=== PATIENT | male | born 1935 | race Caucasian/White ===

== ENCOUNTER 2021-07-12 05:29 | Day surgery (SDC) | payer MEDICARE, BC ==
[2021-07-06 15:04] LABS: BASOPHILS % (AUTO) 0.6 % (0-1); EOSINOPHILS # (AUTO) 0.1 X10'3 (0-0.9); EOSINOPHILS % (AUTO) 1.9 % (0-6); LYMPHOCYTES # (AUTO) 1.9 X10'3 (1.1-4.8); LYMPHOCYTES % (AUTO) 24.8 % (21-51); MEAN CORPUSCULAR HEMOGLOBIN 32.8 PG (27.0-31.0); MEAN CORPUSCULAR HGB CONC 34.5 g/dL (33.0-36.5); MEAN CORPUSCULAR VOLUME 94.9 FL (78-98); MEAN PLATELET VOLUME 8.6 FL (7.4-10.4); MONOCYTES # (AUTO) 0.7 X10'3 (0-0.9); MONOCYTES % (AUTO) 9.4 % (2-12); NEUTROPHILS # (AUTO) 4.8 X10'3 (1.8-7.7); NEUTROPHILS % (AUTO) 63.3 % (42-75); PRE OP HEMATOCRIT 43.5 % (42.0-52.0); PRE OP PLATELET COUNT 210 X10'3 (140-440); RED BLOOD COUNT 4.58 X10'6 (4.70-6.10); RED CELL DISTRIBUTION WIDTH 13.5 % (11.5-14.5)
[2021-07-06 15:18] LABS: ALBUMIN 3.5 G/DL (3.4-5.0); ALKALINE PHOSPHATASE 64 IU/L (46-116); BLOOD UREA NITROGEN 17 MG/DL (7-18); BUN/CREATININE RATIO 17.9 (5.4-32.0); CALCIUM 8.3 MG/DL (8.5-10.1); CHLORIDE 109 MMOL/L (99-107); CREATININE 0.95 MG/DL (0.60-1.10); PRE OP ALT 35 U/L (30-65); PRE OP ANION GAP 12 (8-16); PRE OP AST 20 U/L (10-37); PRE OP BILIRUB, TOTAL 0.4 MG/DL (0.0-1.0); PRE OP GLUCOSE 105 MG/DL (70-104); PRE OP SODIUM 144 MMOL/L (135-145); TOTAL CARBON DIOXIDE 23.2 MMOL/L (24-32); TOTAL PROTEIN 6.9 G/DL (6.4-8.2); eGFR 76 ML/MIN
[~2021-07-12] VITALS: Ht 172.7 cm; Wt 93.0 kg
[2021-07-12] VITALS (14 sets, daily range): BP systolic 124–143; BP diastolic 70–88
[~2021-07-12 05:29] MED LIST: ALBU8HFA PO; ATRNS; FLUT16SP13 BOTHNARES; LOSA1TAB41 PO; MONT-40 PO; SILD20TA PO; TRAZ-251 PO; ringers solution, lacted 1,000 ML IV SCH
[2021-07-12] MEDS ORDERED: ceFAZolin 2gm in dextrose, iso 50 ML IV ONE (05:30)
[2021-07-12] MEDS ORDERED: albuterol 2.5 MG/3 ML nebule NEB ONE (05:30)
[2021-07-12] MEDS ORDERED: famotidine 20mg tablet PO ONE (05:30)
[2021-07-12] MEDS ORDERED: BUPIVAcaine/PF 2.5 mg/ml (0.25%) 30ml vial ONE (06:51)
[2021-07-12] MEDS ORDERED: LIDOcaine 1% 30ml preserv. free vial ONE (06:51)
[2021-07-12] MEDS ORDERED: BUPIVACAINE liposomal/PF 13.3 MG/ML vial IM ONE (06:52)
[2021-07-12] MEDS ORDERED: BUPIVAcaine/PF 2.5mg/ml (0.25%) 10ml vial ONE (06:52)
[2021-07-12] MEDS ORDERED: ringers solution, lacted 1,000 ML IV SCH (07:20)
[2021-07-12] MEDS ORDERED: fentaNYL/PF 50MCG/1 ML 2ML syringe IV PRN ×2 (07:20)
[2021-07-12] MEDS ORDERED: ondansetron/PF 4mg/2ml inj IV PRN (07:20)
[2021-07-12] MEDS ORDERED: labetalol 20mg/4ml (5mg/ml) syringe IV PRN (07:20)
[2021-07-12] MEDS ORDERED: morphine 4 MG/ML inj SYRINge IV PRN (07:20)
[2021-07-12] MEDS ORDERED: hydrALAZINE 20mg/ml inj. IV PRN (07:20)
[2021-07-12] MEDS ORDERED: morphine 2 MG/ML inj. syringe IV PRN (07:20)
[2021-07-12] MEDS ORDERED: fentaNYL/PF 50MCG/1 ML 2ML syringe ONE (07:24)
[2021-07-12] MEDS ORDERED: midazolam 1 mg/ML 2ml injection ONE (07:24)
[2021-07-12] MEDS ORDERED: propofol inj 20 ML IV ONE (07:25)
[2021-07-12] MEDS ORDERED: rocuronium 10mg/ml inj IV ONE (07:25)
[2021-07-12] MEDS ORDERED: glycopyrrolate 0.2mg/ml inj ONE (07:26)
[2021-07-12] MEDS ORDERED: neostigmine methylsulfate 1 MG/ML 10ml vial ONE (07:26)
[2021-07-12] MEDS ORDERED: LIDOcaine 2% (20mg/ml) 5ml vial ONE (07:26)
[2021-07-12] MEDS ORDERED: dexamethasone sod phosphate 4mg/ml inj. ONE (07:26)
[2021-07-12] MEDS ORDERED: ondansetron/PF 4mg/2ml inj ONE (07:26)
--- NOTE | 2021-07-12 09:04 | NUR ---
Received from OR via , accompanied by Anesthesiologist DR LUTHER and report given by Anesthesiolgist. PT PRESENTS WITH 20G RIGHT WRIST, ABD DRESSING DRY AND INTACT, VSS Addendum: 07/12/21 at 0923 by Cinthia Joseph RN, RN Amended: Links added.
[2021-07-12] MEDS ORDERED: oxyCODONE/APAP 5-325mg tablet PO PRN ×2 (09:20)
--- NOTE | 2021-07-12 10:27 | NUR ---
PT URINATED 150 INTO URINAL. Addendum: 07/12/21 at 1028 by Cinthia Joseph RN RN Amended: Links added.
--- NOTE | 2021-07-12 10:54 | NUR ---
PT VSS, DC INSTRUCTIONS REVIEWED WITH PT AND PT'S SO/GAEL PT HAS NO FURTHER QUESTIONS AT THIS TIME, IV DC. PT TAKEN OUT IN WHEELCHAIR TO PT'S SO GAEL [facility]ANG TRANSPORTED PT HOME. PT TO CALL FOR FOLLOW UP APT WITH DR KEY. Addendum: 07/12/21 at 1119 by Cinthia Joseph RN, RN Amended: Links added.
== END 2021-07-12 10:54 | disposition home or self-care (01) ==
LOC: PAS 05:29
PROVIDERS: ATTEND Surgery
DX: K42.9 Umbilical hernia without obstruction or gangrene (principal); I10 Essential (primary) hypertension; M19.90 Unspecified osteoarthritis, unspecified site; J44.9 Chronic obstructive pulmonary disease, unspecified; E66.9 Obesity, unspecified; Z68.31 Body mass index [BMI] 31.0-31.9, adult; Z79.899 Other long term (current) drug therapy; Z20.822 Contact with and (suspected) exposure to COVID-19; Z98.890 Other specified postprocedural states; Z87.891 Personal history of nicotine dependence; Z72.89 Other problems related to lifestyle
CPT/HCPCS: 36415; 49652; 64488; 80053; 82948; 85025; 93005; 94640; 94760; C1781; C9290; J1100; J2001; J2250; J2405; J2704; J2710; J3010; J3490; U0003; U0005; Z7506; Z7508; Z7512; A4215; A4618; J7120

== ENCOUNTER 2022-08-02 15:55 | Outpatient (CLI) | payer MEDICARE, BC ==
[~2022-08-02 15:55] MED LIST changes: -ringers solution, lacted 1,000 ML IV SCH
[2022-08-02 16:10] LABS: ABG BASE EXCESS 0.3 mmol/L (-2.0-2.0); ABG PCO2 (T) 32.3 mmHg (35.0-48.0); ABG PO2 (T) 83.1 mmHg (75.0-100.0); ALLEN'S TEST POSITIVE; FCOHb 0.9 % (0.0-3.9); FMetHb 0.3 % (0.0-1.5); FO2Hb 95.8 % (94-97); TOTAL HEMOGLOBIN 15.4 G/dl (14.0-17.9)
== END 2022-08-02 23:59 | disposition home or self-care (01) ==
LOC: RT 15:55
PROVIDERS: ATTEND Internal Medicine Cardiovascular Disease
DX: R94.2 Abnormal results of pulmonary function studies (principal); J44.9 Chronic obstructive pulmonary disease, unspecified; R06.02 Shortness of breath; Z87.891 Personal history of nicotine dependence; Z79.899 Other long term (current) drug therapy
CPT/HCPCS: 36600; 82803; 85018; 94010; 94727; 94729

== ENCOUNTER 2022-08-16 07:59 | Day surgery (SDC) | payer MEDICARE, BC ==
[2022-08-14 15:06] LABS: BASOPHILS # (AUTO) 0.1 X10'3 (0-0.2); BASOPHILS % (AUTO) 0.8 % (0-1); EOSINOPHILS # (AUTO) 0.2 X10'3 (0-0.9); EOSINOPHILS % (AUTO) 2.3 % (0-6); HEMATOCRIT 43.3 % (42.0-52.0); HEMOGLOBIN 14.6 g/dl (14.0-17.9); LYMPHOCYTES # (AUTO) 1.6 X10'3 (1.1-4.8); LYMPHOCYTES % (AUTO) 17.5 % (21-51); MEAN CORPUSCULAR HEMOGLOBIN 30.8 PG (27.0-31.0); MEAN CORPUSCULAR HGB CONC 33.6 g/dL (33.0-36.5); MEAN CORPUSCULAR VOLUME 91.6 FL (78-98); MEAN PLATELET VOLUME 8.4 FL (7.4-10.4); MONOCYTES # (AUTO) 1.2 X10'3 (0-0.9); MONOCYTES % (AUTO) 12.5 % (2-12); NEUTROPHILS # (AUTO) 6.3 X10'3 (1.8-7.7); NEUTROPHILS % (AUTO) 66.9 % (42-75); PLATELET COUNT 299 X10'3 (140-440); RED BLOOD COUNT 4.73 X10'6 (4.70-6.10); RED CELL DISTRIBUTION WIDTH 13.6 % (11.5-14.5); WHITE BLOOD COUNT 9.4 X10'3 (4.5-11.0)
[2022-08-14 15:11] LABS: APTT 29 SECONDS (22-32)
[2022-08-14 15:13] LABS: ALANINE AMINOTRANSFERASE 33 U/L (12-78); ALBUMIN 3.3 G/DL (3.4-5.0); ALBUMIN/GLOBULIN RATIO 0.8 (1.1-1.5); ALKALINE PHOSPHATASE 108 IU/L (46-116); ANION GAP 9 (8-16); ASPARTATE AMINO TRANSFERASE 23 U/L (10-37); BILIRUBIN,TOTAL 0.3 MG/DL (0.1-1.0); BLOOD UREA NITROGEN 14 MG/DL (7-18); BUN/CREATININE RATIO 14.6 (5.4-32.0); CALCIUM 8.8 MG/DL (8.5-10.1); CHLORIDE 103 MMOL/L (99-107); CREATININE 0.96 MG/DL (0.60-1.10); GLUCOSE 101 MG/DL (70-104); POTASSIUM 4.2 MMOL/L (3.5-5.1); SODIUM 137 MMOL/L (135-145); TOTAL CARBON DIOXIDE 25.3 MMOL/L (24-32); TOTAL PROTEIN 7.5 G/DL (6.4-8.2); eGFR 74 ML/MIN
[~2022-08-16] VITALS: Ht 172.7 cm; Wt 92.3 kg
[2022-08-16] VITALS (13 sets, daily range): BP systolic 102–138; BP diastolic 57–95
[2022-08-16] MEDS ORDERED: normal saline 1,000 ML IV SCH (08:15)
[2022-08-16] MEDS ORDERED: nitroGLYCERIN 0.4mg SUBLingual tab SL PRN (08:15)
[2022-08-16] MEDS ORDERED: diphenhydrAMINE 25mg capsule PO PRN (08:15)
[2022-08-16] MEDS ORDERED: LORazepam 0.5 MG tablet PO PRN (08:15)
[2022-08-16] MEDS ORDERED: CETI10TA19 PO (09:20)
[2022-08-16] MEDS ORDERED: ATRNS NS (09:20)
[2022-08-16] MEDS ORDERED: ALBU18HF2 INH (09:20)
[2022-08-16] MEDS ORDERED: midazolam 1 mg/ML 2ml injection ONE (10:33)
[2022-08-16] MEDS ORDERED: fentaNYL/PF 50MCG/1 ML 2ML syringe ONE (10:33)
[2022-08-16] MEDS ORDERED: LIDOcaine 1% 30ml preserv. free vial ONE (10:34)
[2022-08-16] MEDS ORDERED: iohexol 350MG/ML 100ml bottle IV ONE (10:34)
[2022-08-16] MEDS ORDERED: proCHLORperazine 10 MG/2 ml inj ONE (10:44)
--- NOTE | 2022-08-16 11:34 | NUR ---
Bedside report received from MONICA Beatty s/p left/right heart cath with no PCI. Patient a/o x 4 with stable vital signs. NSR on heavy equipment plumbing supervisor. Right groin site stable with no signs of bleeding/hematoma. Will continue to monitor.
[2022-08-16] MEDS ORDERED: ondansetron/PF 4mg/2ml inj IV PRN (11:50)
[2022-08-16] MEDS ORDERED: OXAZEpam 15mg capsule PO PRN (11:50)
[2022-08-16] MEDS ORDERED: normal saline 1000ml 1,000 ML IV SCH (11:50)
[2022-08-16] MEDS ORDERED: HYDROcodone/acetaminophen 10/325mg tab PO PRN (11:55)
[2022-08-16] MEDS ORDERED: proCHLORperazine 10 MG/2 ml inj IV PRN (11:55)
[2022-08-16] MEDS ORDERED: HYDROcodone/acetaminophen 5mg/325mg tablet PO PRN (11:55)
== END 2022-08-16 17:50 | disposition home or self-care (01) ==
LOC: SSTAY O 07:59
PROVIDERS: ATTEND Internal Medicine Cardiovascular Disease
DX: I25.10 Atherosclerotic heart disease of native coronary artery without angina pectoris (principal); G47.33 Obstructive sleep apnea (adult) (pediatric); E78.5 Hyperlipidemia, unspecified; I10 Essential (primary) hypertension; I44.0 Atrioventricular block, first degree; I45.10 Unspecified right bundle-branch block; Z87.891 Personal history of nicotine dependence; Z79.899 Other long term (current) drug therapy; Z79.01 Long term (current) use of anticoagulants
CPT/HCPCS: 36415; 80053; 85025; 85610; 85730; 93005; 93458; 93567; 99152; 99153; C1760; C1769; J0780; J2250; J3010; J3490; J7030; Q0163; Q9967

== ENCOUNTER 2022-09-19 06:08 | Day surgery (SDC) | payer MEDICARE, BC ==
[2022-09-19] VITALS (17 sets, daily range): BP systolic 103–148; BP diastolic 47–87
[~2022-09-19] VITALS: Ht 172.7 cm; Wt 90.0 kg
[~2022-09-19 06:08] MED LIST changes: +ALBU18HF2 INH; -ATRNS; +ATRNS NS; +CETI10TA19 PO; -SILD20TA PO
[2022-09-19] MEDS ORDERED: normal saline 1000ml 1,000 ML IV PRN (06:25)
[2022-09-19] MEDS ORDERED: albumin 25% 100mL bottle x 1 IV PRN (06:25)
[2022-09-19 07:27] LABS: BASOPHILS # (AUTO) 0.1 X10'3 (0-0.2); BASOPHILS % (AUTO) 0.6 % (0-1); EOSINOPHILS # (AUTO) 0.4 X10'3 (0-0.9); EOSINOPHILS % (AUTO) 4.3 % (0-6); HEMATOCRIT 44.9 % (42.0-52.0); HEMOGLOBIN 14.9 g/dl (14.0-17.9); LYMPHOCYTES # (AUTO) 1.7 X10'3 (1.1-4.8); LYMPHOCYTES % (AUTO) 19.7 % (21-51); MEAN CORPUSCULAR HGB CONC 33.2 g/dL (33.0-36.5); MEAN CORPUSCULAR VOLUME 90.3 FL (78-98); MEAN PLATELET VOLUME 8.7 FL (7.4-10.4); MONOCYTES # (AUTO) 1.1 X10'3 (0-0.9); MONOCYTES % (AUTO) 12.3 % (2-12); NEUTROPHILS # (AUTO) 5.6 X10'3 (1.8-7.7); NEUTROPHILS % (AUTO) 63.1 % (42-75); PLATELET COUNT 303 X10'3 (140-440); RED BLOOD COUNT 4.97 X10'6 (4.70-6.10); RED CELL DISTRIBUTION WIDTH 13.8 % (11.5-14.5); WHITE BLOOD COUNT 8.8 X10'3 (4.5-11.0)
[2022-09-19 08:08] LABS: ALBUMIN 3.4 G/DL (3.4-5.0); ANION GAP 9 (8-16); BLOOD UREA NITROGEN 15 MG/DL (7-18); BUN/CREATININE RATIO 14.2 (5.4-32.0); CALCIUM 8.9 MG/DL (8.5-10.1); CHLORIDE 104 MMOL/L (99-107); CREATININE 1.06 MG/DL (0.60-1.10); GLUCOSE 91 MG/DL (70-104); POTASSIUM 3.8 MMOL/L (3.5-5.1); SODIUM 140 MMOL/L (135-145); TOTAL CARBON DIOXIDE 26.9 MMOL/L (24-32); eGFR 66 ML/MIN
[2022-09-19] MEDS ORDERED: midazolam 1 mg/ML 2ml injection ONE (09:02)
[2022-09-19] MEDS ORDERED: LIDOcaine 1% (10mg/ml) 2ml vial ONE ×2 (09:02→09:43)
[2022-09-19] MEDS ORDERED: fentaNYL/PF 50MCG/1 ML 2ML syringe ONE (09:02)
== END 2022-09-19 13:30 | disposition home or self-care (01) ==
LOC: SSTAY O 06:08
PROVIDERS: ATTEND Radiology Vascular & Interventional Radiology
DX: R91.8 Other nonspecific abnormal finding of lung field (principal); C34.92 Malignant neoplasm of unspecified part of left bronchus or lung; J44.9 Chronic obstructive pulmonary disease, unspecified; I10 Essential (primary) hypertension; Z87.891 Personal history of nicotine dependence; Z79.899 Other long term (current) drug therapy; Z90.49 Acquired absence of other specified parts of digestive tract; Z85.828 Personal history of other malignant neoplasm of skin
CPT/HCPCS: 32408; 36415; 71045; 80048; 85025; J2250; J3010; J3490; J7030; 77012; 99152; 99153; A4615; C1769

== ENCOUNTER 2022-12-04 13:48 | Emergency (ER) | payer MEDICARE, BC ==
[~2022-12-04 13:48] MED LIST changes: -CETI10TA19 PO
== END 2022-12-04 14:51 | disposition left against medical advice (07) ==
LOC: ER 13:48
DX: K57.92 Diverticulitis of intestine, part unspecified, without perforation or abscess without bleeding (principal); Z53.21 Procedure and treatment not carried out due to patient leaving prior to being seen by health care provider

== ENCOUNTER 2022-12-04 16:34 | Emergency (ER) | payer MEDICARE, BC ==
[~2022-12-04] VITALS: Ht 172.7 cm; Wt 79.5 kg
[2022-12-04 16:54] VITALS: BP 113/77
[2022-12-04] MEDS ORDERED: morphine 4 MG/ML inj SYRINge IV ONE (17:00)
[2022-12-04 17:28] LABS: BASOPHILS # (AUTO) 0.1 X10'3 (0-0.2); BASOPHILS % (AUTO) 0.5 % (0-1); EOSINOPHILS # (AUTO) 0.1 X10'3 (0-0.9); EOSINOPHILS % (AUTO) 0.5 % (0-6); HEMATOCRIT 42.8 % (42.0-52.0); LYMPHOCYTES # (AUTO) 1.2 X10'3 (1.1-4.8); LYMPHOCYTES % (AUTO) 8.8 % (21-51); MEAN CORPUSCULAR HEMOGLOBIN 28.4 PG (27.0-31.0); MEAN CORPUSCULAR HGB CONC 32.6 g/dL (33.0-36.5); MEAN PLATELET VOLUME 7.6 FL (7.4-10.4); MONOCYTES # (AUTO) 1.6 X10'3 (0-0.9); MONOCYTES % (AUTO) 12.1 % (2-12); NEUTROPHILS # (AUTO) 10.3 X10'3 (1.8-7.7); NEUTROPHILS % (AUTO) 78.1 % (42-75); PLATELET COUNT 475 X10'3 (140-440); RED BLOOD COUNT 4.93 X10'6 (4.70-6.10); RED CELL DISTRIBUTION WIDTH 14.5 % (11.5-14.5); WHITE BLOOD COUNT 13.2 X10'3 (4.5-11.0)
[2022-12-04 17:38] LABS: ALANINE AMINOTRANSFERASE 54 U/L (12-78); ALBUMIN 2.7 G/DL (3.4-5.0); ALBUMIN/GLOBULIN RATIO 0.5 (1.1-1.5); ALKALINE PHOSPHATASE 93 IU/L (46-116); ANION GAP 7 (8-16); ASPARTATE AMINO TRANSFERASE 22 U/L (10-37); BILIRUBIN,TOTAL 0.4 MG/DL (0.1-1.0); BLOOD UREA NITROGEN 10 MG/DL (7-18); BUN/CREATININE RATIO 12.2 (10.0-20.0); CALCIUM 9.3 MG/DL (8.5-10.1); CHLORIDE 97 MMOL/L (99-107); CREATININE 0.82 MG/DL (0.60-1.10); GLUCOSE 155 MG/DL (70-104); POTASSIUM 3.7 MMOL/L (3.5-5.1); SODIUM 130 MMOL/L (135-145); TOTAL CARBON DIOXIDE 25.7 MMOL/L (24-32); eGFR 89 ML/MIN
[2022-12-04 17:42] LABS: LIPASE 185 U/L (73-393)
[2022-12-04] MEDS: normal saline 1000ml 1,000 ML IV ONE ×2 (19:39→19:46)
== END 2022-12-04 20:36 | disposition home or self-care (01) ==
LOC: ER 16:35
DX: J45.909 Unspecified asthma, uncomplicated (principal); R10.32 Left lower quadrant pain
CPT/HCPCS: 36415; 74176; 80053; 83690; 84484; 85025; 93005; 99285; J7030